=== PATIENT | male | born 1995 | race American Indian/Alaskan Native ===

== ENCOUNTER 2021-06-06 04:56 | Emergency (ER) | payer SELFPAY ==
[2021-06-06 05:07] VITALS: BP 125/72
[2021-06-06] MEDS ORDERED: IBUPROFEN 600 MG TAB PO ONE (05:36)
[2021-06-06] MEDS ORDERED: LIDOCAINE VISCOUS 2% 15 ML ORAL LIQD PO ONE (05:36)
[2021-06-06] MEDS ORDERED: ACETAMINOPHEN 500 MG TAB PO ONE (05:36)
[2021-06-06] MEDS ORDERED: dexAMETHasone 20 MG/5 ML VIAL IM ONE (05:36)
[2021-06-06] MEDS ORDERED: LIDOCAINE-MPF (1%) 10 MG/1 ML VIAL 5 ML INFILTRATI ONE (05:37)
--- NOTE | 2021-06-06 06:10 | Emergency Department Report ---
ED General Adult HPI - General Chief complaint: Sore Throat Stated complaint: SORE THROAT Source: patient Mode of arrival: Ambulatory Limitations: No Limitations - History of Present Illness Initial comments: Patient is a 26-year-old -[place] male with no past medical history presents to the ED with complaint of acute onset persistent severe sore throat, dysphagia and body aches and pains for the last 2 days. Patient states that she is unable to swallow anything including fluids and solid foods because of worsening pain. Patient states that no one else at home has had similar symptoms. Patient denies fever, chills, nausea, vomiting, nasal and sinus congestion, cough, chest pain, shortness of breath, abdominal pain, diarrhea, dizziness or syncope. MD Complaint: Sore throat, dysphagia -: Sudden, days(s) (2) Location: mouth Radiation: non-radiation Severity scale (0 -10): 8 Quality: aching, sharp Consistency: constant Improves with: none Worsens with: eating Associated Symptoms: denies other symptoms. denies: confusion, chest pain, cough, diaphoresis, fever/chills, headaches, loss of appetite, malaise, n ausea/vomiting, rash, seizure, shortness of breath, syncope, weakness Treatments Prior to Arrival: none - Related Data Previous Rx's Medication Instructions Recorded Last Taken Type Ibuprofen [Motrin] 800 mg PO Q8HR PRN #30 tablet 06/06/21 Unknown Rx Lidocaine Viscous 2% 10 ml PO Q6H PRN #120 ml 06/06/21 Unknown Rx Ondansetron [Zofran Odt] 4 mg PO Q6HR PRN #15 tab.rapdis 06/06/21 Unknown Rx Penicillin V Potassium 500 mg PO Q6H #40 tablet 06/06/21 Unknown Rx predniSONE [Deltasone] 40 mg PO QDAY #12 tab 06/06/21 Unknown Rx Allergies Allergy/AdvReac Type Severity Reaction Status Date / Time No Known Allergies Allergy Unverified 06/06/21 05:07 ED Review of Systems ROS: Stated complaint: SORE THROAT Other details as noted in HPI Constitutional: malaise. denies: chills, fever Eyes: denies: eye pain, eye discharge, vision change ENT: throat pain, other (Dysphagia). denies: ear pain, dental pain, hearing loss, congestion Respiratory: denies: cough, shortness of breath, wheezing Cardiovascular: denies: chest pain, palpitations Endocrine: no symptoms reported Gastrointestinal: denies: abdominal pain, nausea, vomiting, diarrhea Genitourinary: denies: urgency, dysuria Musculoskeletal: arthralgia, myalgia. denies: back pain, joint swelling Skin: denies: rash, lesions Neurological: denies: headache, weakness, paresthesias Psychiatric: denies: anxiety, depression Hematological/Lymphatic: denies: easy bleeding, easy bruising ED Past Medical Hx - Past Medical History Previous Medical History?: No - Surgical History Past Surgical History?: No - Social History Smoking Status: Never Smoker Substance Use Type: None - Medications Home Medications: Home Medications Medication Instructions Recorded Confirmed Last Taken Type Ibuprofen [Motrin] 800 mg PO Q8HR PRN #30 tablet 06/06/21 Unknown Rx Lidocaine Viscous 2% 10 ml PO Q6H PRN #120 ml 06/06/21 Unknown Rx Ondansetron [Zofran Odt] 4 mg PO Q6HR PRN #15 tab.rapdis 06/06/21 Unknown Rx Penicillin V Potassium 500 mg PO Q6H #40 tablet 06/06/21 Unknown Rx predniSONE [Deltasone] 40 mg PO QDAY #12 tab 06/06/21 Unknown Rx ED Physical Exam - General Limitations: No Limitations General appearance: alert, in no apparent distress - Head Head exam: Present: atraumatic, normocephalic, normal inspection - Eye Eye exam: Present: normal appearance, PERRL, EOMI Pupils: Present: normal accommodation - ENT ENT exam: Present: normal exam, mucous membranes moist, TM's normal bilaterally, normal external ear exam, other (Erythematous oropharynx and tonsils with moderate exudates; uvula is midline and no sign of peritonsillar abscess) - Neck Neck exam: Present: normal inspection, full ROM, lymphadenopathy (Bilateral cervical lymphadenopathy) - Respiratory Respiratory exam: Present: normal lung sounds bilaterally. Absent: respiratory distress, wheezes, rales, rhonchi, stridor, chest wall tenderness, accessory muscle use, decreased breath sounds, other - Cardiovascular Cardiovascular Exam: Present: regular rate, normal rhythm, normal heart sounds. Absent: systolic murmur, diastolic murmur, rubs, gallop - GI/Abdominal GI/Abdominal exam: Present: soft, normal bowel sounds. Absent: tenderness, guarding, rebound, hyperactive bowel sounds, hypoactive bowel sounds, organomegaly, mass - Extremities Exam Extremities exam: Present: normal inspection, full ROM, normal capillary refill - Back Exam Back exam: Present: normal inspection, full ROM. Absent: tenderness, CVA tenderness (R), CVA tenderness (L), muscle spasm, paraspinal tenderness, vertebral tenderness - Neurological Exam Neurological exam: Present: alert, oriented X3, CN II-XII intact, normal gait, reflexes normal - Psychiatric Psychiatric exam: Present: normal affect, normal mood - Skin Skin exam: Present: warm, dry, intact, normal color. Absent: rash ED Course Vital Signs 06/06/21 05:02 Temperature 99.7 F H Pulse Rate 99 H Respiratory 18 Rate Blood Pressure 125/72 O2 Sat by Pulse 100 Oximetry ED Medical Decision Making - Medical Decision Making This is a 26-year-old -[place] male with no past medical history presents to the ED with complaint of acute onset persistent severe sore throat, dysphagia and body aches and pains for the last 2 days. Patient states that she is unable to swallow anything including fluids and solid foods because of worsening pain. Patient states that no one else at home has had similar sy mptoms. In the ED, patient is alert and oriented x3 and is not in any distress. Patient however appears to be in pain. Patient was treated for pain in the ED and also given initial oral antibiotics. Patient also received a steroid injection to prevent swelling of his throat. Patient is hemodynamically stable with oxygen saturation of 100% in room air. On reevaluation, patient's pain is well controlled medications. Patient was discharged home on pain medications and oral antibiotics, and advised to follow-up with his primary care physician in 7 to 10 days for reevaluation or return to the ED immediately if symptoms get worse. - Differential Diagnosis Bacterial tonsillitis; bacterial pharyngitis; strep pharyngitis; Critical care attestation.: If time is entered above; I have spent that time in minutes in the direct care of this critically ill patient, excluding procedure time. ED Disposition Clinical Impression: Acute bacterial tonsillitis, Acute bacterial pharyngitis Disposition: HOME / SELF CARE / HOMELESS Is pt being admited?: No Does the pt Need Aspirin: No Condition: Stable Instructions: Tonsillitis, [id number], Sore Throat, [id number] Additional Instructions: Your symptoms are likely due to streptococcal pharyngitis causing significant tonsillitis. Therefore take medications with food, drink plenty of fluids and follow-up with your primary care physician in 7 to 10 days for reevaluation. Return to the ED immediately if symptoms get worse. Prescriptions: predniSONE [Deltasone] 40 mg PO QDAY #12 tab Lidocaine Viscous 2% 10 ml PO Q6H PRN #120 ml PRN Reason: Sore Throat Ibuprofen [Motrin] 800 mg PO Q8HR PRN #30 tablet PRN Reason: Pain / Fever Penicillin V Potassium 500 mg PO Q6H #40 tablet Ondansetron [Zofran Odt] 4 mg PO Q6HR PRN #15 tab.rapdis PRN Reason: Nausea Referrals: [facility] [Provider Group] - 3-5 Days Forms: Work/School Release Form(ED) Time of Disposition: 06:11 Print Language: TURKISH
== END 2021-06-06 06:35 | disposition home or self-care (01) ==
LOC: ED 04:56
DX: J03.90 Acute tonsillitis, unspecified (principal); B96.89 Other specified bacterial agents as the cause of diseases classified elsewhere; Z79.899 Other long term (current) drug therapy
CPT/HCPCS: 96372; 99282; J0696; J1100; J3490